=== PATIENT | female | born 1990 | race African-American/Black ===

== ENCOUNTER 2017-02-06 20:47 | Emergency (ER) | payer SELFPAY ==
[~2017-02-06] VITALS: Ht 165.1 cm; Wt 66.0 kg
[2017-02-06] MEDS ORDERED: DIPHENHYDRAMINE 50MG CAPSULE PO ONE (22:00)
[2017-02-06] MEDS ORDERED: PREDNISONE 20MG TABLET PO ONE (22:00)
[2017-02-07 02:21] VITALS: BP 106/66
== END 2017-02-07 02:49 | disposition home or self-care (01) ==
LOC: ER 22:11
DX: T78.40XA Allergy, unspecified, initial encounter (principal); E03.9 Hypothyroidism, unspecified; Z88.1 Allergy status to other antibiotic agents; Z91.018 Allergy to other foods; X58.XXXA Exposure to other specified factors, initial encounter
CPT/HCPCS: 99283; J7512; Q0163

== ENCOUNTER 2017-10-07 06:21 | Emergency (ER) | payer SELFPAY ==
[~2017-10-07] VITALS: Ht 165.1 cm; Wt 69.0 kg
[2017-10-07] MEDS ORDERED: DIPHENHYDRAMINE 12.5MG/5ML UDC PO ONE (08:00)
[2017-10-07] MEDS ORDERED: FAMOTIDINE 20MG TABLET PO ONE (08:00)
[2017-10-07] MEDS ORDERED: METHYLPREDNISOLONE SOD SUCC 125 MG/2 ML VIAL IM ONE (08:00)
[2017-10-07 13:32] VITALS: BP 96/64
== END 2017-10-07 13:45 | disposition home or self-care (01) ==
LOC: ER 06:38
DX: T78.40XA Allergy, unspecified, initial encounter (principal); E03.9 Hypothyroidism, unspecified; M19.90 Unspecified osteoarthritis, unspecified site; Z88.0 Allergy status to penicillin; Z91.018 Allergy to other foods; X58.XXXA Exposure to other specified factors, initial encounter
CPT/HCPCS: 96372; 99283; J2930; Q0163